=== PATIENT | female | born 1950 | race African-American/Black ===

== ENCOUNTER 2018-10-25 15:03 | Emergency (ER) | payer OTHER, BC | END 2018-10-25 16:05 | disposition home or self-care (01) | LOC: JER 15:03 → JERFT 16:05 ==

== ENCOUNTER 2018-12-06 00:39 | Emergency (ER) | payer OTHER, BC ==
[2018-12-06 01:23] VITALS: BMI 24.5
--- NOTE | 2018-12-06 01:32 | PDOC ---
History of Present Illness - General Chief Complaint: Respiratory Stated Complaint: BLOOD OXYGEN LEVEL LOW Time Seen by Provider: 12/06/18 01:31 - History of Present Illness Initial Comments: 12/06/18 01:31 Ms. Blandon is a 68 yo female w/ pmh of HTN and ovarian cancer w/ metastases to her chest who presents for evaluation of shortness of breath. Patient reports that she is currently undergoing radiation treatment at [facility] for a mass in her chest and that she was scheduled for a radiation treatment today. Patient was not able to get her treatment today as she was unable to lie flat as her O2 sat dropped. Patient was advised by nurse at facility to monitor O2 at home and present to ER for "breathing treatment" if it went below 90. Ms. Blandon reports she has had increasing shortness of breath over the last several weeks that she has discussed with her oncologist and is believed to be 2 /2 the mass in her chest. Does not have any home O2. The patient denies chest pain, headache and dizziness. Denies fever, chills, nausea, vomit, diarrhea and constipation. Denies dysuria, frequency, urgency and hematuria. Past History - Past Medical History Allergies/Adverse Reactions: Allergies Allergy/AdvReac Type Severity Reaction Status Date / Time Penicillins Allergy Mild Rash Verified 12/06/18 01:20 Home Medications: Ambulatory Orders Cholecalciferol (Vitamin D3) [Vitamin D3] 2,000 unit PO DAILY 12/06/18 Losartan/Hydrochlorothiazide [Losartan-Hctz 100-25 mg Tab] 1 each PO DAILY 12/06 Milk Thistle Seed Extract [Milk Thistle 140 mg Capsule] 1 each PO DAILY Cardiac Disorders: Yes (bradicardia) Disorders: Yes (rectal polyps) HTN: Yes - Immunization History Immunization Up to Date: Yes - Suicide/Smoking/Psychosocial Hx Smoking Status: Yes Smoking History: Never smoked Have you smoked in the past 12 months: No Number of Cigarettes Smoked Daily: 2 Information on smoking cessation initiated: No 'Breaking Loose' booklet given: 01/01/12 Hx Alcohol Use: No Drug/Substance Use Hx: No Review of Systems - Review of Systems Comments:: 12/06/18 01:31 GENERAL/CONSTITUTIONAL: No fever or chills. No weakness. HEAD, EYES, EARS, NOSE AND THROAT: No change in vision. No ear pain or discharge. No sore throat. CARDIOVASCULAR: +SOB as described. No chest pain RESPIRATORY: No cough, wheezing, or hemoptysis. GASTROINTESTINAL: No nausea, vomiting, diarrhea or constipation. GENITOURINARY: No dysuria, frequency, or change in urination. MUSCULOSKELETAL: No joint or muscle swelling or pain. No neck or back pain. SKIN: No rash NEUROLOGIC: No headache, vertigo, loss of consciousness, or change in strength/ sensation. ENDOCRINE: No increased thirst. No abnormal weight change HEMATOLOGIC/LYMPHATIC: No anemia, easy bleeding, or history of blood clots. ALLERGIC/IMMUNOLOGIC: No hives or skin allergy. *Physical Exam - Vital Signs Last Vital Signs Temp Pulse Resp BP Pulse Ox 98.0 F 105 H 24 H 121/87 90 L 12/06/18 01:20 12/06/18 01:20 12/06/18 01:20 12/06/18 01:20 12/06/18 01:20 - Physical Exam Comments: 12/06/18 01:31 GENERAL: Awake, alert, and fully oriented, in no acute distress HEAD: No signs of trauma, normocephalic, atraumatic EYES: PERRLA, EOMI, sclera anicteric, conjunctiva clear ENT: Auricles normal inspection, hearing grossly normal, nares patent, oropharynx clear without exudates. Moist mucosa NECK: Normal ROM, supple, no lymphadenopathy, JVD, or masses LUNGS: No distress, speaks full sentences, clear to auscultation bilaterally HEART: Regular rate and rhythm, normal S1 and S2, no murmurs, rubs or gallops, peripheral pulses normal and equal bilaterally. ABDOMEN: Soft, nontender, normoactive bowel sounds. No guarding, no rebound. No masses EXTREMITIES: Normal inspection, Normal range of motion, no edema. No clubbing or cyanosis. NEUROLOGICAL: Cranial nerves II through XII grossly intact. Normal speech, normal gait, no focal sensorimotor deficits SKIN: Warm, Dry, normal turgor, no rashes or lesions noted. ED Treatment Course - LABORATORY CBC & Chemistry Diagram: 12/06/18 03:03 12/06/18 03:03 Medical Decision Making - Medical Decision Making 12/06/18 03:25 Ms. Blandon is a 68 yo female w/ pmh as described who presents for evaluation of worsening SOB concerning for mass effect vs. viral illness vs. PE. Patient will be evaluated for acute process w/ chest CTA and cardiac labs w/ plan of transfer to [facility] if no acute findings. 12/06/18 06:08 Patient labs significant for anemia as below. Patient currently pending CTA for dispo. 12/06/18 06:49 Patient signed out to Dr. Howell for further evaluation. Laboratory Results - last 24 hr 12/06/18 12/06/18 03:03 03:03 WBC 5.4 RBC 4.43 Hgb 8.1 L Hct 26.6 L D MCV 60.1 L MCH 18.3 L D MCHC 30.5 L RDW 24.4 H Plt Count 388 D MPV 8.7 Absolute Neuts (auto) 4.3 Neutrophils % 79.8 D Lymphocytes % 10.3 D Monocytes % 7.7 Eosinophils % 1.2 Basophils % 1.0 Nucleated RBC % 0 Sodium 138 Potassium 3.9 Chloride 102 Carbon Dioxide 28 Anion Gap 8 BUN 12.8 Creatinine 0.5 L Est GFR (CKD-EPI)AfAm 114.45 Est GFR (CKD-EPI)NonAf 98.75 Random Glucose 105 Calcium 9.9 Total Bilirubin 0.2 AST 27 ALT 26 Alkaline Phosphatase 69 Creatine Kinase 218 H Creatine Kinase Index 1.1 CK-MB (CK-2) 2.4 Troponin I < 0.02 Total Protein 6.8 Albumin 3.2 L *DC/Admit/Observation/Transfer Diagnosis at time of Disposition: Shortness of breath - Referrals - Patient Instructions - Post Discharge Activity
[2018-12-06 03:17] LABS: HEMOGLOBIN 8.1 GM/dL (10.7-15.3); MEAN CELL VOLUME 60.1 fl (80-96)
[2018-12-06 03:23] LABS: EOS % 1.2 % (0-4.5); HEMATOCRIT 26.6 % (32.4-45.2); LYMPH % 10.3 % (8-40); MCHC 30.5 g/dl (32.0-36.0); MEAN PLT VOLUME 8.7 fl (7.5-11.1); MONO % 7.7 % (3.8-10.2); NEUT % 79.8 % (42.8-82.8); PLATELET COUNT 388 K/MM3 (134-434); RBC 4.43 M/mm3 (3.60-5.2); RDW 24.4 % (11.6-15.6); WHITE BLOOD COUNT 5.4 K/mm3 (4.0-10.0)
[2018-12-06 03:34] LABS: MCH 18.3 pg (25.7-33.7)
[2018-12-06 03:55] LABS: ALBUMIN 3.2 g/dl (3.4-5.0); ALK PHOS 69 U/L (45-117); ANION GAP 8 MMOL/L (8-16); BILIRUBIN,TOTAL 0.2 mg/dL (0.2-1); BLOOD UREA NITROGEN 12.8 mg/dL (7-18); CALCIUM 9.9 mg/dL (8.5-10.1); CHLORIDE 102 mmol/L (98-107); CO2 28 mmol/L (21-32); CREATININE 0.5 mg/dL (0.55-1.3); GLUCOSE,RANDOM 105 mg/dL (74-106); POTASSIUM 3.9 mmol/L (3.5-5.1); SGOT/AST 27 U/L (15-37); SGPT/ALT 26 U/L (13-61); SODIUM 138 mmol/L (136-145); TOT PROT 6.8 g/dl (6.4-8.2)
--- NOTE | 2018-12-06 04:54 | PDOC ---
Documentation entered by Lay Thomas SCRIBE, acting as scribe for Paco Fowler MD. Paco Fowler MD: This documentation has been prepared by the Martha ball Adrianna, SCRIBE, under my direction and personally reviewed by me in its entirety. I confirm that the documentation accurately reflects all work, treatment, procedures, and medical decision making performed by me. Attending Attestation - Resident Resident Name: Gino Sotelo - ED Attending Attestation I have performed the following: I have examined & evaluated the patient, The case was reviewed & discussed with the resident, I agree w/resident's findings & plan, Exceptions are as noted - HPI HPI: The patient is a 68 year old female, with a significant PMH of HTN, ovarian cysts, and chest met (currently undergoing radiation), who presents to the ED for evaluation of SOB for 2 weeks. Patient notes she has been undergoing radiation, but could not complete it today secondary to her worsening SOB. Patient notes she could not lie down and complete radiation today secondary to her 02 stat dropping. Patient was sent back to her NH and was advised to observe her O2 stat levels, and come to the ED if her levels dropped below 90%. She does not have home O2, and her oncologist believes that her progressively worsening SOB is secondary to her chest met. The patient denies chest pain, headache and dizziness. Denies fever, chills, nausea, vomit, diarrhea and constipation. Denies dysuria, frequency, urgency and hematuria. Allergies: Penicillins Surgical History: None reported Social History: Denies EtOH, tobacco, or illicit drug use PCP: [facility] Phys[facility] 12/06/18 03:04 - Physicial Exam PE: GENERAL: Awake, alert, and fully oriented, in no acute distress HEAD: No signs of trauma ENT: Hearing grossly normal. NECK: Normal ROM. Supple. LUNGS: Breath sounds equal, clear to auscultation bilaterally. No wheezes, and no crackles HEART: Regular rate and rhythm, normal S1 and S2, no murmurs, rubs or gallops ABDOMEN: Soft, nontender. No guarding, no rebound. EXTREMITIES: Normal range of motion, no edema. No clubbing or cyanosis. No cords, erythema, or tenderness NEUROLOGICAL: Cranial nerves II through XII grossly intact. Normal speech. SKIN: Warm, Dry. No rashes or lesions noted. 12/06/18 03:04 - Medical Decision Making 12/06/18 04:49 A portion of this note was documented by scribe services under my direction. I have reviewed the details of the note, within reason, and agree with the documentation with the following case summary and management plan written by me. Patient treated in the ED. Nursing notes are reviewed and incorporated into the medical decision-making. Vital signs reviewed. Peripheral IV access obtained by the nurse, laboratory studies are drawn and sent, reviewed and interpreted by myself. Vital Signs Temp Pulse Resp BP Pulse Ox 98.0 F 105 H 24 H 121/87 90 L 12/06/18 01:20 12/06/18 01:20 12/06/18 01:20 12/06/18 01:20 12/06/18 01:20 68-year-old female patient past medical history of ovarian cancer with lung metastases currently under radiation treatment at [facility] presents with hypoxia and shortness of breath. Patient reports that she's been having gradually worsening shortness of breath but worsened today. Patient is undergoing daily radiation treatments. She was undergoing today's treatment when they noted that she was hypoxic to 95%. She was unable to breathe properly when laying flat. However, when she returned home, she noted that her oxygen saturations 88%. She denies chest pain. Denies fevers, chills, cough, vomiting, diarrhea. However, because of short of breath, we'll need to further investigate. Differential includes tumor burden, acute courtesy booth cashier syndrome, pulmonary embolism, pleural effusions, congestive heart failure, effects of radiation. The patient will need a CAT scan and either admission or chest or to the hospital or transfer to [facility]. 12/06/18 06:43 CBC, BMP 12/06/18 03:03 12/06/18 03:03 CMP Sodium 138 mmol/L (136-145) 12/06/18 03:03 Potassium 3.9 mmol/L (3.5-5.1) 12/06/18 03:03 Chloride 102 mmol/L (98-107) 12/06/18 03:03 Carbon Dioxide 28 mmol/L (21-32) 12/06/18 03:03 Anion Gap 8 MMOL/L (8-16) 12/06/18 03:03 BUN 12.8 mg/dL (7-18) 12/06/18 03:03 Creatinine 0.5 mg/dL (0.55-1.3) L 12/06/18 03:03 Est GFR (CKD-EPI)AfAm 114.45 12/06/18 03:03 Est GFR (CKD-EPI)NonAf 98.75 12/06/18 03:03 Random Glucose 105 mg/dL (74-106) 12/06/18 03:03 Calcium 9.9 mg/dL (8.5-10.1) 12/06/18 03:03 Total Bilirubin 0.2 mg/dL (0.2-1) 12/06/18 03:03 AST 27 U/L (15-37) 12/06/18 03:03 ALT 26 U/L (13-61) 12/06/18 03:03 Alkaline Phosphatase 69 U/L (45-117) 12/06/18 03:03 Creatine Kinase 218 U/L (26-192) H 12/06/18 03:03 Creatine Kinase Index 1.1 % (0.0-5.0) 12/06/18 03:03 CK-MB (CK-2) 2.4 ng/mL (0.5-3.6) 12/06/18 03:03 Troponin I < 0.02 ng/ml (0.00-0.05) 12/06/18 03:03 Total Protein 6.8 g/dl (6.4-8.2) 12/06/18 03:03 Albumin 3.2 g/dl (3.4-5.0) L 12/06/18 03:[address] is pending. Pt signed out to oncoming attending Dr. Marcelino for further management and disposition. Heart Score/ECG Review #1 ECG reviewed & interpreted by me at: 03:00 12/06/18 05:05 NSR 96, no std/araceli, normal axis, normal intervals, QTC 437 msec
--- NOTE | 2018-12-06 07:23 | PDOC ---
*Physical Exam - Vital Signs Last Vital Signs Temp Pulse Resp BP Pulse Ox 97.9 F 97 H 20 149/89 99 12/06/18 06:08 12/06/18 06:08 12/06/18 03:32 12/06/18 06:08 12/06/18 06:08 ED Treatment Course - LABORATORY CBC & Chemistry Diagram: 12/06/18 03:03 12/06/18 03:03 - ADDITIONAL ORDERS Additional order review: Laboratory Results 12/06/18 03:03 Sodium 138 Potassium 3.9 Chloride 102 Carbon Dioxide 28 Anion Gap 8 BUN 12.8 Creatinine 0.5 L Est GFR (CKD-EPI)AfAm 114.45 Est GFR (CKD-EPI)NonAf 98.75 Random Glucose 105 Calcium 9.9 Total Bilirubin 0.2 AST 27 ALT 26 Alkaline Phosphatase 69 Creatine Kinase 218 H Creatine Kinase Index 1.1 CK-MB (CK-2) 2.4 Troponin I < 0.02 Total Protein 6.8 Albumin 3.2 L 12/06/18 03:03 RBC 4.43 MCV 60.1 L MCHC 30.5 L RDW 24.4 H MPV 8.7 Neutrophils % 79.8 D Lymphocytes % 10.3 D Monocytes % 7.7 Eosinophils % 1.2 Basophils % 1.0 Medical Decision Making - Medical Decision Making 12/06/18 07:21 Pt signed out to me by Dr. Bonilla. 68F with a PMH of ovarian CA w/ mets presents with hypoxia concerning for worsening mets vs PE. Pending CTA and possible transfer because all of the patient's physicians are at [facility]. 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 Presumably metastatic mediastinal adenopathy. Multiple bilateral lung metastases. Moderate size right pleural effusion with compressive atelectasis or pneumonia. Right hepatic lobe metastasis. Dr. Crystal, [facility] make up artist/onc, paged for transfer and discussion of pt. Dr. Crystal's office: [phone] 12/06/18 07:56 Dr. Crystal paged x 2. Pt resting in bed comfortably. 12/06/18 08:07 Case d/w Dr. Montana. Will wait for official CT read and she will d/w her attending. 12/06/18 08:31 Dr. Nguyen, attending of Dr. Montana, recommends an ED to ED transfer. Transfer center paged. 12/06/18 08:35 T/f center aware of pt but states they have multiple emergencies and will call back when they can. Pt aware. 12/06/18 09:23 Transfer center paged again. [phone]. 12/06/18 09:35 Pt states she has pain in her shoulders w/o decreased ROM. Will give acetaminophen per pt's request. 12/06/18 10:50 Dr. Nguyen accepts transfer. Will contact ED and give Dr to Dr report [phone]. 12/06/18 10:57 Dr. Ron, ED attending, aware that patient will be transferred. Will organize transportation. *DC/Admit/Observation/Transfer Diagnosis at time of Disposition: Shortness of breath - Discharge Dispostion Disposition: TRANSFER ACUTE CARE/OTHER HOSP Condition at time of disposition: Guarded Decision to Admit order: No - Referrals - Patient Instructions - Post Discharge Activity - Transfer to Acute Care Facility Receiving Facility: [facility] Accepting Physician:: Dr. Nguyen
[2018-12-06] MEDS ORDERED: ACETAMINOPHEN 325 MG TABLET (FP) PO ONE (09:35)
[2018-12-06 10:20] LABS: ANISOCYTOSIS 2+; MACROCYTOSIS 1+; OVALOCYTE 1+; PLATELET ESTIMATE NORMAL; TARGET CELLS 1+; TEAR DROP CELLS 2+
[2018-12-06] MEDS ORDERED: ACETAMINOPHEN 325 MG TABLET (FP) ONE (10:29)
[2018-12-06 10:44] VITALS: TEMP 97.8
[2018-12-06 13:05] VITALS: BP 153/84; PULSE 89
--- NOTE | 2018-12-07 13:24 | EKG ---
Test Reason : Blood Pressure : / mmHG Vent. Rate : 096 BPM Atrial Rate : 096 BPM P-R Int : 166 ms QRS Dur : 084 ms QT Int : 346 ms P-R-T Axes : 050 034 041 degrees QTc Int : 437 ms NORMAL SINUS RHYTHM LEFT ATRIAL ENLARGEMENT BORDERLINE ECG WHEN COMPARED WITH ECG OF 01-JAN-2012 00:24, VENT. RATE HAS INCREASED BY 45 BPM Confirmed by MD MELISSA, SAUD ([id number]) on 12/07/2018 1:24:10 PM Referred By: Confirmed By:SAUD TORRES MD
== END 2018-12-06 13:34 | disposition short-term general hospital (02) ==
LOC: JER 00:39
DX: R09.02 Hypoxemia (principal); I10 Essential (primary) hypertension; D64.9 Anemia, unspecified; C56.9 Malignant neoplasm of unspecified ovary; C78.00 Secondary malignant neoplasm of unspecified lung
CPT/HCPCS: 36415; 71045-TC-FY; 71275-TC; 80053; 82550; 82553; 84484; 85025; 93005; 93010; 99284-25

== ENCOUNTER 2018-12-23 18:05 | Emergency (ER) | payer OTHER, BC ==
[2018-12-23 18:36] VITALS: TEMP 98.6; BMI 24.2
[2018-12-23] MEDS ORDERED: LACTATED RINGERS SOLUTION 1000 ML INFUS.BAG IV ONE (21:01)
[2018-12-23] MEDS ORDERED: oxyCODONE HCL 5 MG TABLET PO ONE (21:02)
--- NOTE | 2018-12-23 21:16 | PDOC ---
History of Present Illness - General Chief Complaint: Weakness Stated Complaint: SENT BY PCP FOR DEHYDRATED Time Seen by Provider: 12/23/18 20:36 History Source: Patient, Family (Son present at bedside), Old Records Exam Limitations: No Limitations - History of Present Illness Initial Comments: HPI: 68 y/o female presenting to [facility] ER complaining of decreased PO intake of both liquids and solids for the past day. After taking more than a small amount of food or liquid, pt reports feeling nauseous and bloated. Endorses chronic and unchanged chest pain and shortness of breath secondary to known metastatic lesions. Denies fevers or chills. Pt has metastatic ovarian cancer, first diagnosed in 2016. Known lesions to abdomen, lungs, and chest cavity. Is s/p 10x palliative radiation treatments, last 13 December 2018. All care is handled through [facility] system. Reports she was evaluated in clinic yesterday and told she has small amount of fluid on lungs but not enough to warrant a tap. Has a previously scheduled appointment tomorrow with specialist wound care at [facility]. Was seen at this facility on 06 December 2018 and evaluated with CTA for possible PE. CTA revealed large masslike density in right upper lobe suspicious for malignancy. SH[employer] REPA[employer]ER Oncologist: Dr. Asya Hayes Radiation Oncologist: Dr. Prakash ([phone]), called to given pre-arrival notification. Medical Hx: - Metastatic ovarian cancer - HTN - Thalasemia - Thyroid Nodules Surgical Hx: - S/p Total Hysterectomy with oophorectomy Review of Systems: In addition to that documented in the HPI above, the additional ROS was obtained : Constitutional: Denies fevers or chills Head: Denies vision changes ENMT: Denies sore throat CV: Denies acute change in chronic chest pain Resp: Denies acute change in chronic SOB GI: Denies vomiting or diarrhea. Endorses constipation which has improved after suppository use : Denies painful urination, hematuria, or increased urinary frequency MSK: Denies recent trauma Skin: Denies new rashes Neuro: Denies new numbness or tingling or weakness Endocrine: Denies polyuria Heme: Denies bleeding or bruising Physical Examination: Constitutional: Elderly adult in no acute distress or obvious discomfort. Found sitting upright on hospital bed. Alert and oriented x4. Answered all questions appropriately and completely. Speech was non-labored, non-pressured. Head: Normocephalic. No obvious external signs of trauma. Eyes: Conjunctiva moist and not injected. Throat: Teeth and gingiva in good general condition. Moist mucosal membranes. Neck: Supple, trachea is midline. Cardiovascular / Chest: Regular rate and regular rhythm. No murmur, rubs, clicks , or gallops. Peripheral pulses: radial pulses full. Respiratory: Breathing unlabored. Equal chest rise and fall. Clear to auscultation bilaterally. No stridor, no wheezing, no rhonchi. Gastrointestinal: abdomen is diffusely tender without grimace, rebound, or guarding. Neuro: Alert and oriented. Moving all four extremities spontaneously. Skin: Warm, dry, and intact. MDM: *Reviewed vital signs, nursing notes, and prior visit documentation (if available). 68 y/o female presenting with concern for dehydration after difficulty swallowing both liquids and solids. Pt is s/p recent radiation treatment and has a known upper chest mass. H/o of similar sensation during course of treatment. Pt denies acute infectious symptoms. Afebrile. Vitals unremarkable for hypotension or tachycardia. Normoxic on home oxygen regimen. Physical exam as described above. Pt does not appear clinically dehydrated. Suspect dysphagia is secondary to mass versus stricture from radiation, though pt denies pain. Will obtain CBC and CMP to evaluate for electrolyte derangement versus significant anemia or leukocytosis. Ordered LR IVFB. Will not repeat imaging given recent CTA performed at this facility. CBC revealed anemia, which is at recent baseline established in [facility]. Pt reports she is scheduled to receive iron injection tomorrow at [facility]. CMP unremarkable for significant electrolyte derangement, normal LFTs, and normal renal function. Pt reasessed. Observed drinking small amount of liquid without difficulty. Reports feeling better. Discussed physical exam and laboratory results with pt and pts son. Answered all questions. Provided return precautions. Both persons expressed verbal understanding and agreement with plan to discharge home with outpatient follow up. Provided radiology report and CD copy of chest CTA from previous visit. Dion Joel M.D., PGY2 Emergency Medicine Resident Past History - Past Medical History Allergies/Adverse Reactions: Allergies Allergy/AdvReac Type Severity Reaction Status Date / Time Penicillins Allergy Mild Rash Verified 12/23/18 18:21 Home Medications: Ambulatory Orders Cholecalciferol (Vitamin D3) [Vitamin D3] 2,000 unit PO DAILY 12/06/18 Losartan/Hydrochlorothiazide [Losartan-Hctz 100-25 mg Tab] 1 each PO DAILY 12/06 Milk Thistle Seed Extract [Milk Thistle 140 mg Capsule] 1 each PO DAILY Cardiac Disorders: Yes (bradicardia) COPD: No Disorders: Yes (rectal polyps) HTN: Yes - Immunization History Immunization Up to Date: Yes - Suicide/Smoking/Psychosocial Hx Smoking Status: Yes Smoking History: Never smoked Have you smoked in the past 12 months: No Number of Cigarettes Smoked Daily: 2 'Breaking Loose' booklet given: 01/01/12 Hx Alcohol Use: No Drug/Substance Use Hx: No *Physical Exam - Vital Signs Last Vital Signs Temp Pulse Resp BP Pulse Ox 98.6 F 88 18 121/64 99 12/23/18 18:10 12/23/18 18:10 12/23/18 18:10 12/23/18 18:10 12/23/18 18:10 ED Treatment Course - LABORATORY CBC & Chemistry Diagram: 12/23/18 21:30 12/23/18 21:30 *DC/Admit/Observation/Transfer Diagnosis at time of Disposition: Difficulty swallowing Qualifiers: Dysphagia type: unspecified Qualified Code(s): R13.10 - Dysphagia, unspecified - Discharge Dispostion Disposition: HOME Condition at time of disposition: Good Decision to Admit order: No - Referrals - Patient Instructions Additional Instructions: You were seen today for nausea and difficulty swallowing. Your physical exam and labs did not suggest that you were significantly dehydrated. Your difficulty swallowing may be related to your recent radiation therapy or to the known mass in your chest. Continue to take your prescribed Zofran (Ondensatron) for the nausea. Try taking smaller sips of water more frequently. You can try the same approach with food. Please follow up with your specialist wound care at [place] at your appointment today. I have attached copies of todays results as well as the CTA of your chest that was obtained during your last ED visit. Go to the nearest emergency department if your condition worsens or you feel like you need additional emergency evaluation. Print Language: ECUADOREAN - Post Discharge Activity
--- NOTE | 2018-12-23 21:23 | PDOC ---
Documentation entered by Paco Williamson SCRIBE, acting as scribe for Desiree Hogue MD. Desiree Hogue MD: This documentation has been prepared by the Clay ball Joel, SCRIBE, under my direction and personally reviewed by me in its entirety. I confirm that the documentation accurately reflects all work, treatment, procedures, and medical decision making performed by me. Attending Attestation - Resident Resident Name: Dion Joel - ED Attending Attestation I have performed the following: I have examined & evaluated the patient, The case was reviewed & discussed with the resident, I agree w/resident's findings & plan, Exceptions are as noted - HPI HPI: 12/23/18 21:13 68 yo female with metastatic ovarian cancer who requires home o2 nasal cannula presents because of feeling bloated and some nausea -She has an appt tomorrow with her neurology technician. She reports having a ct chest yesterday that showed fluid on her lungs but not enough for thoracentesis 12/23/18 21:17 this patient was seen here December [address] of the chest to rule out a PE. There is WERE negative for any pulmonary embolus. However, there were multiple enlarged mediastinal and bilateral hilar lymph nodes, bilateral large pulmonary nodules and a masslike density in the right upper lobe measuring 6.8 cm that is highly suspicious for malignancy/metastasis. the largest mass in the upper lobe may represent a primary tumor. There was a 3.1 cm hypodense lesion in the right hepatic lobe that is also highly suspicious for metastatic lesion. 12/23/18 21:20 - Physicial Exam PE: 12/23/18 21:18 all, thin 68-year-old female presents with shortness of breath and complained of feeling bloated Head normocephalic/atraumatic. eyes anuradha eomi Dry mucous membranes lungs no Rales CVS regular rate and rhythm. Abdomen flat Skin warm and dry. Neuro alert and oriented 3, ambulatory psych appropriate - Medical Decision Making 12/23/18 21:22 pt has an appt with her neurology technician tomorrow 12/23/18 22:34 in reviewing her labs ,her hbg and hct remain unchanged 12/23/18 22:43 this 68 yo female w metastatic ovarian cancer with multiple lung leiosns now has home supplemental oxygen and will see her lung doctor this week
[2018-12-23] MEDS ORDERED: oxyCODONE HCL 5 MG TABLET ONE (21:25)
[2018-12-23 21:55] LABS: BASO % 0.6 % (0-2.0); EOS % 0.2 % (0-4.5); HEMATOCRIT 26.6 % (32.4-45.2); HEMOGLOBIN 7.9 GM/dL (10.7-15.3); LYMPH % 23.4 % (8-40); MCHC 29.8 g/dl (32.0-36.0); MEAN CELL VOLUME 58.9 fl (80-96); MEAN PLT VOLUME 8.4 fl (7.5-11.1); MONO % 6.5 % (3.8-10.2); NEUT % 69.3 % (42.8-82.8); PLATELET COUNT 380 K/MM3 (134-434); RBC 4.52 M/mm3 (3.60-5.2); RDW 25.1 % (11.6-15.6); WHITE BLOOD COUNT 5.2 K/mm3 (4.0-10.0)
[2018-12-23 22:07] LABS: MCH 17.6 pg (25.7-33.7)
[2018-12-23 22:22] LABS: ALBUMIN 3.2 g/dl (3.4-5.0); BILIRUBIN,TOTAL 0.4 mg/dL (0.2-1); BLOOD UREA NITROGEN 16.2 mg/dL (7-18); CALCIUM 9.9 mg/dL (8.5-10.1); CREATININE 0.6 mg/dL (0.55-1.3); POTASSIUM 3.5 mmol/L (3.5-5.1); TOT PROT 6.9 g/dl (6.4-8.2)
[2018-12-23 22:50] LABS: ANISOCYTOSIS 3+; MACROCYTOSIS 3+; OVALOCYTE 1+; PLATELET ESTIMATE NORMAL; TARGET CELLS 1+
[2018-12-24 00:58] VITALS: BP 135/69; PULSE 92
== END 2018-12-24 01:20 | disposition home or self-care (01) ==
LOC: JER 18:05
PROC: 3E0337Z Introduction of Electrolytic and Water Balance Substance into Peripheral Vein, Percutaneous Approach (ICD-10-PCS; principal; 2018-12-23)
DX: R13.10 Dysphagia, unspecified (principal); I10 Essential (primary) hypertension; C56.9 Malignant neoplasm of unspecified ovary; D56.3 Thalassemia minor; Z99.81 Dependence on supplemental oxygen; Z90.710 Acquired absence of both cervix and uterus
CPT/HCPCS: 36415; 80053; 85025; 99283-25